=== PATIENT | female | born 1980 ===

== ENCOUNTER 2024-04-04 17:48 | Inpatient (IN) | payer MEDICARE ==
--- NOTE | 2024-04-04 23:38 | NUR ---
patient arrived to [facility] at 2331 via secure transport.
[2024-04-04] MEDS ORDERED: DiphenhydrAMINE HCl 50 MG/ML 1ML Vial IV PRN (23:45)
[2024-04-04] MEDS ORDERED: Haloperidol 5 MG Tab PO PRN (23:45)
[2024-04-04] MEDS ORDERED: TraZODone HCl 50 MG Tab PO PRN (23:45)
[2024-04-04] MEDS ORDERED: Haloperidol Lactate Inj. 5 MG/ML Injection IM PRN (23:45)
[2024-04-04] MEDS ORDERED: FLU VACC TS2024-25(6MOS UP)/PF 45 MCG/0.5 ML SYRINGE IM ONE (23:45)
[2024-04-04] MEDS ORDERED: OLANZapine ODT 10 MG Tab MM PRN (23:50)
[2024-04-04] MEDS ORDERED: LORazepam 2 MG/ML 1ML Injection IM PRN (23:50)
[2024-04-04] MEDS ORDERED: Aluminum Hydroxide 320MG/5ML 473 ML PO PRN (23:50)
[2024-04-04] MEDS ORDERED: Acetaminophen 325 MG TABLET PO PRN (23:50)
[2024-04-04] MEDS ORDERED: Calcium Carbonate 500 MG Tab Chew PO PRN (23:50)
[2024-04-04] MEDS ORDERED: Clarify Drug Order XX ONE (23:50)
[2024-04-04] MEDS ORDERED: Ibuprofen 600 MG Tab PO PRN (23:50)
[2024-04-04] MEDS ORDERED: Ondansetron 4 MG SoluTab MM PRN (23:55)
[2024-04-04] MEDS ORDERED: DiphenhydrAMINE HCl 50 MG Cap PO PRN (23:55)
[2024-04-04] MEDS ORDERED: Polyethylene Glycol 3350 17 gm PO PRN (23:55)
[2024-04-05] MEDS ORDERED: HydrOXYzine Pamoate 50 MG Cap PO PRN (00:15)
[2024-04-05] MEDS ORDERED: Melatonin 3 MG Tab PO PRN (00:20)
[2024-04-05] MEDS ORDERED: LORazepam 1 MG Tab PO PRN (00:20)
[2024-04-05] MEDS ORDERED: QUEtiapine Fumarate 100 MG Tab PO ONE (00:20)
[2024-04-05] MEDS ORDERED: Melatonin 3 MG Tab PO ONE (00:20)
[2024-04-05] MEDS ORDERED: Nicotine Polacrilex 2 MG Gum PO PRN (00:35)
[2024-04-05] MEDS ORDERED: QUET100 PO (04:51)
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
[2024-04-05 08:19] VITALS: BP 108/63
[2024-04-05] MEDS ORDERED: Multivitamins 1 Tab PO SCH (09:00)
[2024-04-05 10:15] LABS: Influenza A, PCR NEGATIVE (NEGATIVE); Influenza B, PCR NEGATIVE (NEGATIVE); Resp Syncytial Virus, PCR NEGATIVE (NEGATIVE); SARS-Cov-2 (COVID-19) PCR, MMC NEGATIVE (NEGATIVE)
[2024-04-05] MEDS ORDERED: ATOR10 PO (17:01)
[2024-04-05] MEDS ORDERED: ARIPIPRAZOLE OD15 MG (17:01)
[2024-04-05] MEDS ORDERED: B-12500 MC2 PO (17:02)
[2024-04-05] MEDS ORDERED: Benztropine Me0.5 MG PO (17:02)
[2024-04-05] MEDS ORDERED: DIVA250EC PO (17:04)
[2024-04-05] MEDS ORDERED: DOCU100 PO (17:04)
[2024-04-05] MEDS ORDERED: HALO5 PO (17:07)
[2024-04-05] MEDS ORDERED: LEVSOD150 PO ×2 (17:08→17:09)
[2024-04-05] MEDS ORDERED: METF500 PO (17:10)
[2024-04-05] MEDS ORDERED: ZIPR60 PO (17:14)
[2024-04-05] MEDS ORDERED: TRAZ100 PO (17:17)
[2024-04-05] MEDS ORDERED: [UNRECOGNIZED DRUG - CODE] (17:18)
[2024-04-05] MEDS ORDERED: PERP8 PO (17:22)
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
[2024-04-05 20:30] VITALS: BP 120/86
[2024-04-05] MEDS ORDERED: Benztropine Mesylate 1 MG Tab PO SCH (21:00)
[2024-04-05] MEDS ORDERED: QUEtiapine Fumarate 100 MG Tab PO SCH (21:00)
--- NOTE | 2024-04-06 05:41 | NUR ---
SHIFT SUMMARY Pt is A&O, calm, cooperative, eye contact is good. Pt reports her mood as "scared;" affect is constricted. Pt denies current SI, HI, and hallucinations. She denies current pain. Pt took her medications without issues. She was active on the milieu this evening, watching TV with peers and participating in evening wrap-up. Pt has a new order for ziprasidone 20mg daily. Staff continues to monitor for safety and wellness.
[2024-04-06 07:40] VITALS: BP 128/106
[2024-04-06] MEDS ORDERED: Ziprasidone HCL 20 MG Cap PO SCH (09:00)
[2024-04-06] MEDS ORDERED: Docusate Sodium 100 MG Cap PO SCH (09:00)
[2024-04-06] MEDS ORDERED: Atorvastatin 10 MG Tab PO SCH (09:00)
[2024-04-06] MEDS ORDERED: Levothyroxine Sodium 0.15 MG Tab PO SCH (09:00)
[2024-04-06] MEDS ORDERED: Divalproex Sodium 250 MG TABLET.DR PO SCH (09:00)
[2024-04-06] MEDS ORDERED: MetFORMIN HCl 500 mg PO SCH (09:00)
[2024-04-06] MEDS ORDERED: Cyanocobalamin 500 MCG Tab PO SCH (09:00)
--- NOTE | 2024-04-06 17:45 | NUR ---
SHIFT SUMMARY PT A/O X4; PLEASANT AND COOPERATIVE WITH CARE. SHE DENIES SI, HI, OR ANY HALLUCINATIONS. PT SEEMS TO BE DOING BETTER WITH HER ANXIETY THIS SHIFT SINCE BEING STARTED ON HER HOME MEDICATIONS. HER AFFECT IS EUTHYMIC AND SHE APPEARS TO BE CLOSE TO HER BASELINE. SHE ATTENDED ALL GROUPS AND MEALS. SHE CONTINUES TO BE MONITORED VIA Q15 ROUNDING FOR SAFETY.
[2024-04-06 20:37] VITALS: BP 139/72
--- NOTE | 2024-04-07 03:04 | NUR ---
SHIFT SUMMARY Passive SI endorsed when asked. Denies HI/AVS. Impaired short-term memory. Needs instructions repeated. Somewhat redirectable. PRN melatonin and trazodone after HS meds. Around 0000, pt awoke to ask if she'd taken all of her meds. Confirmed this multiple times. Pt accepted this and returned to bed. Observed to be sleeping for the remainder of shift without issue.
[2024-04-07 07:16] VITALS: BP 115/73
[2024-04-07] MEDS ORDERED: Melatonin 5 MG Tablet PO PRN (11:25)
--- NOTE | 2024-04-07 13:26 | NUR ---
ASSUMED PT CARE @0700. PT AA&OX4. SHE IS PLEASANT AND COOPERATIVE WITH CARE. PT SPEECH IS DELAYED. EYE CONTACT IS APPROPRIATE. PT REPORTS MOOD IS "OKAY" AFFECT IS CONGRUENT. SHE DENIES SI/HI/AVH. PT REPORTS POOR SLEEP LAST NIGHT. DR. PEREZ NOTIFIED, NO NEW ORDERS RECIEVED. SHE DENIES ANY CURRENT NEEDS AT THIS TIME. WILL CONTINUE POC
[2024-04-07 20:26] VITALS: BP 113/72
--- NOTE | 2024-04-07 21:23 | NUR ---
Shift Note: Nights Received Pt at 1900. Pt denied SI/HI/AVH. Denied anxiety and depression. Mood calm, affect stable. Appropriate eye contact. Denied pain and physical complaints. Med compliant. Received PRNs (see MAR) for sleeplessness. Completed wrap-up group during snack. Retired to bed without complications.
--- NOTE | 2024-04-08 04:09 | NUR ---
Shift Summary: Night Pt was in group room watching tv at start of shift. Participated in assessment, denying SI/HI/AVH. Discussed plan for the evening, with which Pt was in agreement. Pt participated in evening wrap-up group. Ate 100% of snack. Med compliant; received multiple PRNs (see MAR) for sleeplessness. She watched tv for a brief time after receiving meds, then retired to bed for the evening. No complications.
[2024-04-08 07:14] VITALS: BP 119/71
--- NOTE | 2024-04-08 13:10 | NUR ---
PT A/O X4. PLEASANT AND COOPERATIVE. PT SHOWS COGNATIVE SLOWNESS. IS WORRIED ABOUTT GOING HOME TO MOTHER'S TRAILER. MOTHER STATES SHE HAS COVID AT THIS TIME. IS ANXIOUS AND GIVEN PRN VISTARIL. DENIES TO BE SI. STATES HEARS VOICES WHEN SOMEONE TALKS TO HER BUT VOICES NOT IN HER HEAD. WILL CONTIMUE TO MONITOR.
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
[2024-04-08] MEDS ORDERED: QUEtiapine Fumarate 200 MG Tab PO SCH (21:00)
[2024-04-08 21:25] VITALS: BP 112/77
--- NOTE | 2024-04-09 04:06 | NUR ---
PATIENT WAS IN THE GROUP ROOM AT THE BEGINNING OF THE SHIFT, WATCHING TELEVISION WITH STAFF AND PEERS. SHE JOINED THE GROUP FOR SNACK AT 1999. SHE WAS PLEASANT AND COOPERATIVE WITH CARES, INCLUDING EVENING MEDICATIONS. SHE WAS GIVEN MEDICATION EDUCATION AND VERBALIZED UNDERSTANDING. SHE WATCHED TELEVISION AFTER SNACK, THEN WENT TO BED, WHERE SHE WAS NOTED TO BE RESTING QUIETLY WITH EYES CLOSED AND RESPIRATIONS CONFIRMED FOR THE REMAINDER OF THE SHIFT. SHE HAD NO S/SX SUICIDAL IDEATION THIS SHIFT. CONTINUING TO MONITOR FOR SAFETY WITH Q15 MINUTE CHECKS.
[2024-04-09 06:46] LABS: Valproic Acid 30.9 ug/mL (50.0-100.0)
[2024-04-09 07:57] VITALS: BP 123/76
--- NOTE | 2024-04-09 10:26 | NUR ---
PT A/O X4. COOPERATIVE AND INTERACTIVE WITH OTHERS. IS CONCERNED WITH HER DISCHARGE TODAY. STATES THAT SHE CANNOT GO HOME HER MOTHER MAY HAVE COVID. EXPLAINED THAT WE CAN PROVIDE MASKS FOR HER TAKE HOME AND EDUCATED ON GOOD HAND WASHING. SHE ALSO TALKED WITH THE DR ABOUT HER ANXIETY MEDS. HAD TO ENCOURAGE PT SHOWER SHE HAS POOR JUDGEMENT ON PERSONAL CARE. WILL CONTNUE T WORK ON DISCHARGE PLANS. WILL CONTINUE TOO MONITOR.
[2024-04-09] MEDS ORDERED: ATOR10 PO (13:16)
[2024-04-09] MEDS ORDERED: Benztropine Me0.5 MG PO (13:17)
[2024-04-09] MEDS ORDERED: DIVA500ER PO (13:19)
[2024-04-09] MEDS ORDERED: HALDOL DEC50 MG/1 ML IM (13:26)
[2024-04-09] MEDS ORDERED: QUET300 PO (13:29)
[2024-04-09] MEDS ORDERED: MELATONIN5 M1 PO (13:29)
[2024-04-09] MEDS ORDERED: QUEtiapine Fumarate 200 MG Tab PO ONE (13:40)
--- NOTE | 2024-04-09 13:42 | NUR ---
PT USES [employer] FOR CASE MANAGEMENT AND FOLLOW UP SERVICES, SHE IS GIVEN HANDWRITTEN INFORMATION AND CONTACT INFORMATION TO FOLLOW UP ONCE SHE GETS BACK TO HER HOME.
--- NOTE | 2024-04-09 13:47 | NUR ---
PT A/O X4. GIVEN DISCHARGE INSTRUCTIONS, BELONGINGS RETURNED, EDUCATION PROVIDED ON MEDICATIONS AND TO FOLLOW UP WITH HER PCP AND PAINTER TOUCH UP. PT PROVIDED WITH FACE MASKS TO WEAR AT HOME WITH CONCERN OF CATCHING COVID FROM HER MOTHER. PT DECLINES OFFER OF NICOTINE CESSTATION CONTACT. PT REPLIED "NO I WANT TO SMOKE, I SMOKE ALL THE TIME." PT ASKED QUESTIONS APPROPRIATELY ON DISCHARGE INSTRUCTIONS. VERBALIZED UNDERSTANDING. PRESCRIPT[facility] CALLED INTO [facility] IN [place].[phone]. PHARMACIST "FITO" SPOKEN WITH.
[2024-04-10] MEDS ORDERED: Divalproex Sodium 500 MG TABLET.DR PO SCH (09:00)
[2024-04-13] MEDS ORDERED: Haloperidol Decanoate 50 MG / ML 1ML Amp IM SCH (09:00)
== END 2024-04-09 13:46 | disposition home or self-care (01) | DRG 885 ==
LOC: BHU 17:48
PROVIDERS: Psychiatry & Neurology Psychiatry; ADMIT Student in an Organized Health Care Education/Training Program
DX: F25.0 Schizoaffective disorder, bipolar type (principal); R45.851 Suicidal ideations; Z28.21 Immunization not carried out because of patient refusal; E11.9 Type 2 diabetes mellitus without complications; Z79.899 Other long term (current) drug therapy; Z79.84 Long term (current) use of oral hypoglycemic drugs
CPT/HCPCS: 0241U; 36415; 80164; A9270; Q0175